=== PATIENT | female | born 1935 | race Caucasian/White ===

== ENCOUNTER 2017-07-20 13:02 | Emergency (ER) | payer MEDICAID ==
[~2017-07-20] VITALS: Ht 144.8 cm; Wt 51.1 kg
[2017-07-20 13:07] VITALS: BP 113/51
== END 2017-07-20 17:10 | disposition left against medical advice (07) ==
LOC: ER 13:06
DX: J81.1 Chronic pulmonary edema (principal); Z53.21 Procedure and treatment not carried out due to patient leaving prior to being seen by health care provider